=== PATIENT | female | born 1980 | race Caucasian/White ===

== ENCOUNTER 2017-06-21 12:06 | Emergency (ER) | payer OTHER ==
[2017-06-21] MEDS ORDERED: ONDANSETRON 4 MG/2 ML VIAL ONE (12:35)
[2017-06-21] MEDS ORDERED: ONDANSETRON 4 MG/2 ML VIAL IVP ONE (12:36)
[2017-06-21] MEDS ORDERED: NS 1,000 ML IV ONE (12:36)
--- NOTE | 2017-06-21 12:49 | EDPHY ---
H & P Stated Complaint: r sided abd pain/ fever Time Seen by Provider: 06/21/17 12:46 HPI/ROS: CHIEF COMPLAINT: Abdominal pain, vomiting, diarrhea, subjective fever HISTORY OF PRESENT ILLNESS: The patient presents the ED with a 1 day history of severe right-sided abdominal pain. She reports associated vomiting, diarrhea and subjective fever. The patient reports a past medical history significant for fibromyalgia, irritable bowel syndrome, migraine headaches and kidney stones. The patient reports her past surgical history is significant for hysterectomy. The patient denies any antecedent cough, sore throat or additional infectious symptoms. She denies recent antibiotic use or travel outside the [place]. The patient reports her pain is moderate in nature. REVIEW OF SYSTEMS: A comprehensive 10 point review of systems is otherwise negative aside from elements mentioned in the history of present illness. Source: Patient Exam Limitations: No limitations - Personal History LMP (Females 10-55): Hysterectomy Current Tetanus/Diphtheria Vaccine: Yes - Medical/Surgical History Hx Asthma: No Hx Chronic Respiratory Disease: No Hx Diabetes: No Hx Cardiac Disease: No Hx Renal Disease: No Hx Cirrhosis: No Hx Alcoholism: No Hx HIV/AIDS: No Hx Splenectomy or Spleen Trauma: No Other PMH: fibromyalgia/ibsd/migraine/kidney stones/hysterectomy - Social History Smoking Status: Current every day smoker - Physical Exam Exam: General Appearance: Alert, mild discomfort Eyes: Pupils equal and round no pallor or injection ENT, Mouth: Mucous membranes moist Respiratory: There are no retractions, lungs are clear to auscultation Cardiovascular: Regular rate and rhythm Gastrointestinal: Tenderness to palpation in the right lower quadrant, mild rebound, slight guarding Neurological: A&O, normal motor function, normal sensory exam, normal cranial nerves Skin: Warm and dry, no rashes Musculoskeletal: Neck is supple nontender Extremities: symmetrical, full range of motion Constitutional: Initial Vital Signs Temperature (C) 37.6 C 06/21/17 12:11 Heart Rate 109 H 06/21/17 12:11 Respiratory Rate 18 06/21/17 12:11 Blood Pressure 132/88 H 06/21/17 12:11 O2 Sat (%) 94 06/21/17 12:11 O2 Delivery Mode Room Air Allergies/Adverse Reactions: Penicillins Allergy (Verified 06/21/17 12:09) Home Medications: Medication Instructions Recorded IMITREX 06/21/17 Ondansetron Odt [Zofran Odt] 4 mg PO Q4PRN PRN #20 tab 06/21/17 Percocet 10-325 mg Tablet 06/21/17 Provigil 06/21/17 oxyCODONE/APAP 5/325 [Percocet 1 - 2 tab PO Q6-8PRN PRN #20 tab 06/21/17 5/325 (RX)] Medical Decision Making - Diagnostics Imaging Results: Imaging Impressions Abdomen CT 06/21/17 13:41 Impression: 1. No source for right lower quadrant pain identified. Normal vermiform appendix. 2. Nonobstructive (at this time) bilateral nephrolithiasis. Results discussed with Dr. Homar Celestin and Dr. Jesus Ruiz. General information for patients regarding this examination can be found at [email or web address]. If you have questions or comments about this report, please contact me at (hospital) or [phone] (cell). ED Course/Re-evaluation: The patient presents the ED with complaints of right lower quadrant pain, vomiting and diarrhea. The patient was noted to be very tender on exam. She had an IV established. She received IV morphine, Toradol and ultimately Dilaudid. Given her severe tenderness she was taken for CT scan of the abdomen pelvis which demonstrates no obvious explanation for her abdominal pain. The patient did undergo serial examinations in the ED. At this point time I feel the most likely explanation or of her symptoms is gastroenteritis. The patient will be discharged home with a prescription for Zofran and and Percocet. The patient will be advised to return to the ED for markedly worsening pain or other concerns. Differential Diagnosis: Differential diagnosis considered includes appendicitis, perforation, obstruction, pyelonephritis, ureterolithiasis - Data Points Laboratory Results: Laboratory Results 06/21/17 12:30 06/21/17 12:30 06/21/17 06/21/17 06/21/17 15:40 12:30 12:30 WBC 16.19 10^3/uL H 10^3/uL (3.80-9.50) RBC 4.81 10^6/uL 10^6/uL (4.18-5.33) Hgb 15.1 g/dL g/dL (12.6-16.3) Hct 45.6 % % (38.0-47.0) MCV 94.8 fL fL (81.5-99.8) MCH 31.4 pg pg (27.9-34.1) MCHC 33.1 g/dL g/dL (32.4-36.7) RDW 12.5 % % (11.5-15.2) Plt Count 339 10^3/uL 10^3/uL (150-400) MPV 8.6 fL L fL (8.7-11.7) Neut % (Auto) 89.0 % H % (39.3-74.2) Lymph % (Auto) 6.5 % L % (15.0-45.0) [place] % (Auto) 3.2 % L % (4.5-13.0) Eos % (Auto) 0.6 % % (0.6-7.6) Baso % (Auto) 0.2 % L % (0.3-1.7) Nucleat RBC Rel Count 0.0 % % (0.0-0.2) Absolute Neuts (auto) 14.41 10^3/uL H 10^3/uL (1.70-6.50) Absolute Lymphs (auto) 1.06 10^3/uL 10^3/uL (1.00-3.00) Absolute Monos (auto) 0.51 10^3/uL 10^3/uL (0.30-0.80) Absolute Eos (auto) 0.09 10^3/uL 10^3/uL (0.03-0.40) Absolute Basos (auto) 0.04 10^3/uL 10^3/uL (0.02-0.10) Absolute Nucleated RBC 0.00 10^3/uL 10^3/uL (0-0.01) Immature Gran % 0.5 % % (0.0-1.1) Immature Gran # 0.08 10^3/uL 10^3/uL (0.00-0.10) Sodium 140 mEq/L mEq/L (135-145) Potassium 4.2 mEq/L mEq/L (3.5-5.2) Chloride 106 mEq/L mEq/L (97-110) Carbon Dioxide 19 mEq/l L mEq/l (22-31) Anion Gap 15 mEq/L mEq/L (8-16) BUN 15 mg/dL mg/dL (7-23) Creatinine 0.7 mg/dL mg/dL (0.6-1.0) Estimated GFR > 60 Glucose 99 mg/dL mg/dL (70-100) Calcium 8.9 mg/dL mg/dL (8.5-10.4) Total Bilirubin 0.9 mg/dL mg/dL (0.1-1.4) Conjugated Bilirubin 0.3 mg/dL mg/dL (0.0-0.5) Unconjugated Bilirubin 0.6 mg/dL mg/dL (0.0-1.1) AST 19 IU/L IU/L (14-46) ALT 27 IU/L IU/L (9-52) Alkaline Phosphatase 84 IU/L IU/L (38-126) Total Protein 7.3 g/dL g/dL (6.3-8.2) Albumin 4.1 g/dL g/dL (3.5-5.0) Lipase 55 IU/L IU/L (23-300) Urine Color YELLOW Urine Appearance HAZY Urine pH 5.0 (5.0-7.5) Ur Specific [place] > 1.035 H (1.002-1.030) Urine Protein NEGATIVE (NEGATIVE) Urine Ketones NEGATIVE (NEGATIVE) Urine Blood NEGATIVE (NEGATIVE) Urine Nitrate NEGATIVE (NEGATIVE) Urine Bilirubin NEGATIVE (NEGATIVE) Urine Urobilinogen NEGATIVE EU EU (0.2-1.0) Ur Leukocyte Esterase NEGATIVE (NEGATIVE) Urine Glucose NEGATIVE (NEGATIVE) Medications Given: Discontinued Medications Hydromorphone HCl (Dilaudid) 1 mg IVP EDNOW ONE Stop: 06/21/17 15:20 Last Admin: 06/21/17 15:24 Dose: 1 mg Sodium Chloride (Ns) 1,000 mls @ 0 mls/hr IV ONCE ONE PRN Reason: Wide Open Stop: 06/21/17 12:37 Last Admin: 06/21/17 12:38 Dose: 1,000 mls Ketorolac Tromethamine (Toradol) 15 mg IVP EDNOW ONE Stop: 06/21/17 13:43 Last Admin: 06/21/17 13:44 Dose: 15 mg Morphine Sulfate (Morphine) 2 mg IVP EDNOW ONE Stop: 06/21/17 12:42 Last Admin: 06/21/17 12:43 Dose: 2 mg Ondansetron HCl (Zofran) 4 mg IVP EDNOW ONE Stop: 06/21/17 12:37 Last Admin: 06/21/17 12:39 Dose: 4 mg Promethazine HCl (Phenergan) 6.25 mg IVP ONCE ONE Stop: 06/21/17 14:51 Last Admin: 06/21/17 14:53 Dose: 6.25 mg Departure - Departure Disposition: Home, Routine, Self-Care Clinical Impression: Gastroenteritis Abdominal pain Qualifiers: Abdominal location: right lower quadrant Qualified Code(s): R10.31 - Right lower quadrant pain Condition: Good Instructions: Acute Abdominal Pain (ED) Additional Instructions: 1. Take Ibuprofen or Motrin 600 mg by mouth three times a day. 2. Percocet as needed for severe pain 3. Sometimes we are unable to diagnose an obvious cause of abdominal pain in the Emergency Department. Based upon our evaluation today, I believe you likely are experiencing a viral intestinal infection. Because more serious conditions can be difficult to diagnose early in the course of their presentation, we ask that you return to the Emergency Department in 8-12 hours for a recheck if you are still having pain. This is necessary to exclude the development of a more serious condition such as appendicitis or other intra- abdominal emergency. In the event your pain markedly increases before that time or you develop intractable vomiting or fever return to the Emergency Department immediately. Referrals: [facility] [Primary Care Provider] - As per Instructions Prescriptions: Ondansetron Odt [Zofran Odt] 4 mg PO Q4PRN PRN #20 tab PRN Reason: For Nausea oxyCODONE/APAP 5/325 [Percocet 5/325 (RX)] 1 - 2 tab PO Q6-8PRN PRN #20 tab PRN Reason: for pain
[2017-06-21 13:06] LABS: PLATELET COUNT 339 10^3/uL (150-400)
[2017-06-21] MEDS ORDERED: KETOROLAC 15 MG/1 ML SDV IVP ONE (13:42)
[2017-06-21] MEDS ORDERED: IOPAMIDOL (ISOVUE-300) 100 ML BTL ONE (14:13)
[2017-06-21] MEDS ORDERED: PROMETHAZINE HCL 25 MG/ML INJ IVP ONE (14:50)
[2017-06-21] MEDS ORDERED: HYDROmorphONE/DILAUDID 1 MG/ML INJ IVP ONE (15:19)
[2017-06-21 16:15] VITALS: BP 123/89; PULSE 91; RESP 18; TEMP 98.6; O2SAT 95
== END 2017-06-21 16:28 | disposition home or self-care (01) ==
DX: K52.9 Noninfective gastroenteritis and colitis, unspecified (principal); F17.200 Nicotine dependence, unspecified, uncomplicated; Z90.710 Acquired absence of both cervix and uterus
CPT/HCPCS: 96374; J1170; J1885; J2270; J2405; J2550; Q9967

== ENCOUNTER 2018-05-04 10:24 | Observation (INO) | payer OTHER, MEDICAID ==
[2018-05-04] MEDS ORDERED: ONDANSETRON 4 MG/2 ML VIAL ONE (10:49)
[2018-05-04] MEDS ORDERED: fentaNYL 100 MCG/2 ML INJ ONE (10:49)
[2018-05-04] MEDS ORDERED: ONDANSETRON 4 MG/2 ML VIAL IVP ONE (10:53)
[2018-05-04] MEDS ORDERED: fentaNYL 100 MCG/2 ML INJ IVP ONE (10:53)
[2018-05-04] MEDS ORDERED: NS 1,000 ML IV ONE (10:56)
[2018-05-04 11:02] LABS: PLATELET COUNT 377 10^3/uL (150-400)
--- NOTE | 2018-05-04 11:52 | EDPHY ---
HPI/HX/ROS/PE/MDM Narrative: CLINICAL IMPRESSION: Renal stone, intractable pain ASSESSMENT/PLAN: Patient is a 37-year-old female with a significant medical history of kidney stones requiring lithotripsy, fibromyalgia and irritable bowel syndrome who presents with right upper quadrant and right flank pain. Patient is afebrile, she is uncomfortable appearing however not toxic-appearing. Her abdomen was soft with mild tenderness to palpation in the right upper quadrant, no peritoneal signs and no evidence of a surgical abdomen; right CVA tenderness. CBC revealed no evidence of leukocytosis, vital signs were reviewed and there was no evidence of sepsis or serious bacterial illness. BMP revealed no significant metabolic abnormality or CHRISTOPHER. UA with trace leukocytes and 25-35 WBCs, urine sent for culture. CT abdomen and pelvis w/out revealed large 15 x 10 mm stone in the right renal pelvis with associated mild hydronephrosis. History and physical examination is consistent with right renal pelvis stone with associated hydronephrosis and intractable pain. Dr. Butler with Urology was consulted, no indication for urgent surgical intervention and he did not recommend antibiotic therapy based upon above results. The patient was given IV fluids, morphine, fentanyl, Dilaudid, Toradol and lidocaine infusion with mild to moderate relief of her discomfort. The patient remained hemodynamically stable however in light of no adequate pain control the patient will be admitted to the hospitalist service for further evaluation and management. I spoke directly with Tiffanie Jacome nurse practitioner who will be the admitting provider. Dr. Butler will also formally consult this patient. On reexamination prior to transfer to the floor the patient reported that she was feeling mildly better, her abdomen remained soft without evidence of a surgical abdomen. Case, results and plan of care discussed with Dr. Groves. DIFFERENTIAL DX: Back pain including but not limited to muscular pain, herniated disc, spine fracture, intra-abdominal causes and urinary tract infection. Abdominal pain including but not limited to appendicitis, cholecystitis and gastritis CHIEF COMPLAINT: Right-sided abdominal and flank pain HPI: Patient is a 37-year-old female with a significant history of fibromyalgia, kidney stones and irritable bowel syndrome who presents to the emergency department complaining of right sided abdominal and right flank pain. Patient reports mid February she had a fall injuring her right ribs, was admitted for pain control for presumed contusion. She has been having ongoing and intermittent right-sided abdominal and flank pain since that time. Patient reports that she did improve however had a sudden onset of worsening pain today after she ate. Patient describes it as stabbing in nature and unrelenting. She has not tried anything for pain. Patient does have a history of kidney stones requiring lithotripsy, states that this does not feel similar to when she has had stones in the past. She denies any fevers, chills however has had periods of feeling nauseous. She denies any chest pain, shortness of breath or vomiting. She denies any pelvic pain, vaginal pain, vaginal bleeding or vaginal discharge. She does endorse hematuria noted yesterday, denies any dysuria or increased frequency. Also denies any midline back pain. Patient denies saddle paresthesias, lower extremity numbness, tingling, major motor weakness, urinary retention or bowel/bladder incontinence. PMH: Fibromyalgia, irritable bowel syndrome, renal colic Pertinent Past Surgical History: Hysterectomy Family History: Not contributory Social History: Denies REVIEW OF SYSTEMS: All other systems negative Constitutional: No fever, no chills, appetite change. Eyes: No discharge, vision change ENT: No sore throat, congestion, ear pain. Cardiovascular: No chest pain, no palpitations. Respiratory: No cough, no shortness of breath. Gastrointestinal: Abdominal pain. No vomiting, diarrhea. Genitourinary: Hematuria. No dysuria or pelvic pain Musculoskeletal: Right flank pain. No midline back pain, joint swelling, joint pain, myalgias. Skin: No rashes, color change. Neurological: No headache, dizziness, weakness. PHYSICAL EXAM: General Appearance: Patient is well-developed, obese, uncomfortable appearing however not toxic-appearing. HENT: Normocephalic, atraumatic. Bilateral external ears are normal. Bilateral tympanic membranes are normal with pearly albright reflex. Nares are clear, mucosa is pink. Oropharynx is clear, uvula is midline. There is no tonsillar enlargement or exudate. The dentition is normal. Eyes: PERRLA, no acute vision change, nystagmus, swelling, discharge, pain or photosensitivity. Conjunctiva pink, no pallor or injection Neck: Supple, nontender, no lymphadenopathy, no midline pain, FROM, no meningismus. Respiratory: There are no retractions, lungs are clear to auscultation. Cardiac: Regular rate and rhythm, no murmurs or gallops. Gastrointestinal: Patient has mild tenderness to palpation in the right upper quadrant, positive right CVA tenderness. She has negative McBurney's point tenderness, negative rebound tenderness and negative Rovsing's. No peritoneal signs. Bowel sounds are present. There are no appreciable masses. Neurological: Alert and oriented x 3, CN 2-12 grossly intact, normal gait no ataxia, DTR's intact, normal sensation and strength Skin: Warm, dry, no rashes, no nodules on palpation. Musculoskeletal: Extremities are symmetrical, full range of motion, no tenderness, deformity, swelling, or erythema. Psychiatric: Patient is oriented X 3, there is no agitation. MEDICAL DECISION MAKING: Patient was seen independently. Secondary supervising physician at time of evaluation was Dr. Groves. Diagnosis: Renal stone, intractable pain. New, requires workup Summary: See Assessment and Plan for summary of ED visit Clinical lab tests: ordered / reviewed. Independent visualization of images, tracing, or specimens: Yes. Decision to obtain medical records or history from someone other than the patient: Yes Review / Summarize previous medical records: Yes Discussed patient with another provider: Yes, Dr. Groves and Dr. Butler Patient Progress: Stable, admit. (Desirae Conley) ED Course: The patient was evaluated and managed by the physician assistant banquet manager. I have reviewed this chart and I agree with the findings and plan of care as documented , as indicated by my signature. I am the secondary supervising physician. ( Diana Groves) - Data Points Laboratory Results: Laboratory Results 05/04/18 10:50 05/04/18 10:50 Medications Given: Citalopram Hydrobromide (Celexa) 40 mg PO HS [facility] Stop: 10/31/18 20:59 Last Admin: 05/04/18 20:56 Dose: 40 mg Ketorolac Tromethamine (Toradol) 15 mg IVP Q6 [facility] Stop: 05/09/18 17:59 Last Admin: 05/05/18 05:26 Dose: 15 mg Morphine Sulfate (Morphine) 1 - 2 mg IVP Q1HR PRN PRN Reason: Pain, Severe Unable to Take PO Stop: 05/15/18 09:20 Last Admin: 05/05/18 09:28 Dose: 2 mg Nortriptyline HCl (Pamelor) 10 mg PO HS [facility] Stop: 10/31/18 20:59 Last Admin: 05/04/18 21:01 Dose: 10 mg Ondansetron HCl (Zofran Odt) 4 mg PO Q4HRS PRN PRN Reason: Nausea/Vomiting, Use 1st Stop: 10/31/18 15:34 Last Admin: 05/04/18 18:34 Dose: 4 mg Promethazine HCl (Phenergan) 12.5 mg IVP Q6HRS PRN PRN Reason: Nausea/Vomiting, Can't Take PO Stop: 10/31/18 22:05 Last Admin: 05/04/18 22:23 Dose: 12.5 mg Sumatriptan Succinate (Imitrex) 25 mg PO ONCE PRN PRN Reason: MIGRAINE Stop: 10/31/18 19:19 Last Admin: 05/05/18 09:01 Dose: 25 mg Varenicline (Chantix) 1 mg PO [facility] Stop: 10/31/18 20:59 Last Admin: 05/04/18 21:01 Dose: 1 mg Discontinued Medications Fentanyl (Sublimaze) 75 mcg IVP EDNOW ONE Stop: 05/04/18 10:54 Last Admin: 05/04/18 10:55 Dose: 75 mcg Hydromorphone HCl (Dilaudid) 0.5 mg IVP EDNOW ONE Stop: 05/04/18 14:45 Last Admin: 05/04/18 14:45 Dose: 0.5 mg Sodium Chloride (Ns) 1,000 mls @ 0 mls/hr IV ONCE ONE; Wide Open PRN Reason: Protocol Stop: 05/04/18 10:57 Last Admin: 05/04/18 11:00 Dose: 1,000 mls Lidocaine HCl 100 mg/ Sodium (Chloride) 110 mls @ 600 mls/hr IV EDNOW ONE Stop: 05/04/18 13:13 Last Admin: 05/04/18 13:30 Dose: 110 mls Sodium Chloride (Ns) 1,000 mls @ 100 mls/hr IV CONT [facility] Stop: 05/05/18 01:44 Last Admin: 05/04/18 16:58 Dose: 1,000 mls Levofloxacin/Dextrose (Levaquin 500 Mg (Premix)) 100 mls @ 100 mls/hr IV ONCALL ONE PRN Reason: Protocol Stop: 05/05/18 11:29 Last Admin: 05/05/18 11:31 Dose: 100 mls Lactated Ringer's (Lr) 1,000 mls @ 0 mls/hr IV ONCE ONE PRN Reason: KVO Stop: 05/05/18 10:24 Last Admin: 05/05/18 10:28 Dose: 1,000 mls Ketorolac Tromethamine (Toradol) 30 mg IVP EDNOW ONE Stop: 05/04/18 12:14 Last Admin: 05/04/18 12:27 Dose: 30 mg Morphine Sulfate (Morphine) 4 mg IVP EDNOW ONE Stop: 05/04/18 11:23 Last Admin: 05/04/18 11:24 Dose: 4 mg Morphine Sulfate (Morphine) 1 - 2 mg IVP Q1HR PRN PRN Reason: Pain, Severe Unable to Take PO Stop: 05/14/18 15:34 Last Admin: 05/05/18 05:24 Dose: 2 mg Ondansetron HCl (Zofran) 4 mg IVP EDNOW ONE Stop: 05/04/18 10:54 Last Admin: 05/04/18 10:56 Dose: 4 mg General Initial Vital Signs: Initial Vital Signs Temperature (C) 37.2 C 05/04/18 10:30 Heart Rate 90 05/04/18 10:30 Respiratory Rate 16 05/04/18 10:30 Blood Pressure 126/84 H 05/04/18 10:30 O2 Sat (%) 95 05/04/18 10:30 O2 Delivery Mode Room Air O2 (L/minute) 2 Allergies/Adverse Reactions: Penicillins Allergy (Verified 05/04/18 10:29) Home Medications: Medication Instructions Recorded Beclomethasone Dipropionate [Qvar 1 puffs PO BID PRN 05/04/18 Redihaler] Citalopram Hydrobromide 40 mg PO HS 05/04/18 [Citalopram HBr] Nortriptyline HCl [Nortriptyline 10 mg PO HS 05/04/18 HCl] SUMAtriptan [Imitrex 25 MG (*)] 25 mg PO Q2H PRN 05/04/18 Varenicline Tartrate [Chantix 1MG 1 mg PO HS 05/04/18 (*)] Departure - Departure Disposition: [facility] In[facility] Acute Clinical Impression: Renal calculus, right, Intractable pain Condition: Good
[2018-05-04] MEDS ORDERED: KETOROLAC 30 MG/1 ML SDV ONE (12:13)
[2018-05-04] MEDS ORDERED: KETOROLAC 30 MG/1 ML SDV IVP ONE (12:13)
[2018-05-04] MEDS ORDERED: LIDOCAINE 1% 100 MG in NS 100 ML IV ONE (13:03)
[2018-05-04] MEDS ORDERED: HYDROmorphONE/DILAUDID 1 MG/ML INJ ONE (14:40)
[2018-05-04] MEDS ORDERED: HYDROmorphONE/DILAUDID 2 MG/ML INJ IVP ONE (14:44)
[2018-05-04] MEDS ORDERED: ONDANSETRON DISINTEGRATING 4 MG TAB PO PRN (15:35)
[2018-05-04] MEDS ORDERED: ACETAMINOPHEN 325 MG TAB PO PRN (15:35)
[2018-05-04] MEDS ORDERED: ONDANSETRON 4 MG/2 ML VIAL IVP PRN (15:35)
[2018-05-04] MEDS ORDERED: NS 1,000 ML IV SCH (15:45)
--- NOTE | 2018-05-04 16:24 | GHP ---
DATE OF ADMISSION: 05/04/2018 CHIEF COMPLAINT: Right-sided flank pain. HISTORY OF PRESENT ILLNESS: The patient is a 37-year-old woman who has a history of kidney stones, fibromyalgia, irritable bowel syndrome, who presented to the emergency room with flank pain. Her initial symptoms originally occurred on March 03. She fell in her driveway area due to slipping on ice. She hit her gluteus area and then her back. At that time, came in the ER and was monitored overnight for pain management. During that evaluation, the x- ray showed that she had a kidney stone. She was discharged home and needed approximately a month to recover after the fall. Today at work, she was having flank pain that came on suddenly. She currently works at [email or web address]. Her coworkers encouraged her to go to the emergency room and ultimately drove her to be further evaluated. She also noticed that she had blood in her urine. She does not have a menstrual cycle because she has a history of a partial hysterectomy. She did not have any nausea or vomiting or fever or chills. She described having severe flank pain. An abdominal ultrasound was performed that showed moderate right hydronephrosis with a 7 mm calculus in the right renal pelvis. She has no cholelithiasis or biliary ductal dilatation. Subsequently, a CT of the abdomen and pelvis was performed that showed moderate right hydronephrosis secondary to an 18 x 10 mm calculus in the right renal pelvis. She has a nonobstructing left nephrolithiasis. During my interview, her pain is overall well managed. She denies any chest pain, any shortness of breath, any changes in her weight. PAST SURGICAL HISTORY: 1. Partial hysterectomy. 2. Ankle surgery. 3. Two endometrial surgeries for endometriosis. PAST MEDICAL HISTORY: 1. History of kidney stones on 6 different occasions. 2. Fibromyalgia. 3. Irritable bowel syndrome. 4. Migraines. FAMILY HISTORY: Her mother from complications of a stroke at age 52. Her mom was also an alcoholic. Her father is alive and is healthy. SOCIAL HISTORY: She has been for 11 years. Her has MS. She has 1 son. She does not smoke. She rarely drinks alcohol. She currently works at [email or web address]. ALLERGIES: She has seasonal allergies. She has a penicillin allergy. She is not clear of her reaction. This occurred when she was little. She also is allergic to some medication that treats irritable bowel syndrome, but she could not remember this medication. HOME MEDICATIONS: Chantix 1 mg p.o. at bedtime, nortriptyline 10 mg p.o. at bedtime, citalopram 40 mg p.o. at bedtime, Imitrex 25 mg p.o. q.2 hours p.r.n., and Qvar inhaler twice daily p.r.n. REVIEW OF SYSTEMS: A 10-point review of system was performed and was negative other than the pertinent positive in HPI and past medical history. PHYSICAL EXAM: GENERAL: The patient is a 37-year-old woman who appears to be overall in good health. VITAL SIGNS: Blood pressure is 111/70, heart rate is 65, respiratory rate is 16, O2 saturation on room air 94%, temperature is 36.8 Celsius. EYES: Pupils are equal and reactive. EOMs are intact. No conjunctival injection noted. ENT: Normal ears hearing intact. Oral airways moist. NECK: Trachea is midline. CARDIOVASCULAR: She is in a regular rate and rhythm. No murmurs, rubs, or gallops noted. 2+ pedal pulses. LUNGS: Normal respiratory effort. Clear without wheezing, rales, rhonchi. ABDOMEN: Soft, nontender. She has positive flank pain on the right side. SKIN: No rashes, ulcers. MUSCULOSKELETAL: Equal upper and lower extremity strength. PSYCHIATRIC: She is alert and oriented. Normal mood, affect. Normal judgment , insight, and normal memory. DATA REVIEWED: A CBC shows a white blood cell count of 9.33, hemoglobin 13.4, hematocrit of 40.5, platelet count of 377. Chemistry shows a sodium 139, potassium 4.2, chloride of 108, anion gap of 7, BUN 20, creatinine 0.8, glucose of 115, AST is 13, ALT is 20, alk phos is 83, albumin is 4, lipase is 89. screen is negative. Urinalysis shows 2+ protein, 2+ blood, trace leukocyte esterase, 25 to 50 RBCs and 15 to 25 white blood cells. IMAGING: Described in the HPI. I reviewed the patient's care with Desirae Conley , physician nursing home assistant administrator, in the emergency room. ASSESSMENT/PLAN: 1. Right-sided nephrolithiasis measuring 18 x 10 mm. This is noted to be in the right renal pelvis. She will get further evaluation by Dr. Butler. For now , will give her supportive care with Toradol and p.r.n. morphine. This has worked well for her in the emergency room. 2. Right-sided hydronephrosis. This should resolve with passing of the stone. 3. Flank pain. Will order p.r.n. medications. 4. Length of stay. She will likely require less than a 2 midnight stay which will make her observation status. 5. Code status. Full. 6. Deep venous thrombosis prophylaxis. Low risk. This can be further evaluated if she stays. /[id number]/MODL MTDD
--- NOTE | 2018-05-04 16:43 | ASMTCMCOM ---
CM Note CM Note Notes: Reviewed chart, pt admitted to hospital for kidney stone. Pt is independent, she lives with her and works. Anticipate she will dc home w/support of family when medically stable. CM available for any changes. DC Plan: Independent Date Signed: 05/04/2018 04:42 PM Electronically Signed By:Rachel Vang RN
[2018-05-04] MEDS ORDERED: BECLOMETHASONE QVAR 40 REDIHALER 120 INH/10.6 GM MDI IH PRN (19:20)
[2018-05-04] MEDS ORDERED: SUMAtriptan 25 MG TAB PO PRN (19:20)
[2018-05-04] MEDS: KETOROLAC 15 MG/1 ML SDV IVP SCH (19:37)
[2018-05-04] MEDS: CITALOPRAM 20 MG TAB PO SCH (20:56)
[2018-05-04] MEDS: VARENICLINE TARTRATE 1 MG TAB PO SCH (21:01)
[2018-05-04] MEDS: NORTRIPTYLINE HCL 10 MG CAP PO SCH (21:01)
[2018-05-04] MEDS: PROMETHAZINE HCL 25 MG/ML INJ IVP PRN (22:23)
[2018-05-05] MEDS: KETOROLAC 15 MG/1 ML SDV IVP SCH ×5 (00:14→23:32)
--- NOTE | 2018-05-05 06:02 | GCON ---
UROLOGY CONSULTATION DATE OF CONSULTATION: 05/04/2018 PHYSICIAN REQUESTING CONSULTATION: Hospitalist service. REASON FOR CONSULTATION: Symptomatic right kidney stone. HISTORY: This is a 37-year-old woman with prior history of nephrolithiasis, who started experiencing right-sided flank pain approximately 2 months ago that she initially thought was due to a fall. She then experienced an acute onset of right-sided flank pain at work earlier today for which she presented to the emergency room for further evaluation. A CT scan was performed, which revealed a large right kidney stone. The patient was subsequently admitted for pain control and further management. She did have some gross hematuria earlier today , but otherwise she denies dysuria, fevers, nor flu-like symptoms. As mentioned above, she has at least 3 kidney stones previously with the first episode being in 2007, and requiring lithotripsy at that time. She has had 2 subsequent episodes of spontaneous stone passage since then, up until the present history. PAST MEDICAL HISTORY: Notable for fibromyalgia, irritable bowel syndrome, migraine headaches, recurrent nephrolithiasis, and endometriosis. PAST SURGICAL HISTORY: Includes partial hysterectomy in approximately 2013, extracorporeal shock wave lithotripsy in 2007. ADMISSION MEDICATIONS: Includes Chantix 1 mg at bedtime, nortriptyline 10 mg at bedtime, citalopram 40 mg at bedtime, Imitrex 25 mg q.2 hours p.r.n., QVAR inhaler twice daily p.r.n. ALLERGIES: Penicillin, unclear reaction. FAMILY HISTORY: Noncontributory. SOCIAL HISTORY: The patient lives with her and 1 [facility]. She denies use of tobacco products and consumes alcohol rarely. She works at [employer]. REVIEW OF SYSTEMS: Unremarkable, other than mentioned above in the HPI and Past Medical History. PHYSICAL EXAM: GENERAL: Obese white female lying upright in bed in no acute distress presently. VITAL SIGNS: Blood pressure 143/80, pulse 72, respirations 16, oxygen saturation 94% on room air, temperature 36.8 Celsius. Height 155 cm, weight 96 kg, BMI 40. HEENT: Normocephalic, atraumatic. NECK: No visible deformities. CHEST: Unlabored respiratory pattern. HEART: Regular rate. ABDOMEN: Obese. Mild tenderness in the right upper quadrant with palpation but without peritoneal signs nor involuntary guarding. BACK: Moderate right CVA tenderness with gentle percussion. VASCULAR: Normal femoral pulses bilaterally. NEUROLOGIC: She is alert and oriented. She answers all questions appropriately with normal mood and affect. LAB STUDIES: Noncontrast abdominopelvic CT scan today: Upon my review, notable for an approximately 18 x 10 x 16 mm long right ureteropelvic junction calculus. No other significant nephroureterolithiasis is appreciated. Chemistry panel today is normal, creatinine 0.8, calcium 9.1. Uric acid level not checked. Qualitative beta HCG was negative. CBC is normal. Urinalysis notable for trace leukocyte, 25-50 red blood cells, 15-25 white blood cells. Urine culture is pending. IMPRESSION: Large symptomatic right renal calculus. This calculus is too large to be treated with retrograde ureteroscopy nor extracorporeal shockwave lithotripsy. She will eventually require percutaneous nephrostolithotomy. However, in the interim, she needs drainage of her right kidney to alleviate her current symptoms. Drainage would consist of either intraoperative ureteral stenting or nephrostomy tube placement through Interventional Radiology. Each of these options was compared and contrasted, and all her questions were answered today. PLAN: 1. Continue medical management today. 2. We will proceed with intraoperative attempted right-sided ureteral stent placement tomorrow morning. If this is successful, the patient can be discharged any time thereafter and follow up in my office late next week for further discussion regarding definitive management of her large renal calculus. Thank you for this consultation. Copy requested to: Rc Bello MD /[id number]/MODL MTDD
[2018-05-05] MEDS ORDERED: LR 1,000 ML IV ONE (10:23)
[2018-05-05] MEDS ORDERED: levOFLOXACIN 500 MG/DEXTROSE 100 ML IV ONE (10:30)
[2018-05-05] MEDS ORDERED: MIDAZOLAM 2 MG/2 ML VIAL IVP ONE (11:24)
--- NOTE | 2018-05-05 11:25 | PDANEPAE ---
ANE Past Medical History - Pulmonary History Hx Oxygen in Use at Home: No Hx Sleep Apnea: Yes Sleep Apnea Screening Result - Last Documented: Positive - Endocrine History Hx Diabetes: No - Chronic Pain History Chronic Pain: Yes ANE Review of Systems Review of Systems: ANE Patient History - Allergies Allergies/Adverse Reactions: Penicillins Allergy (Verified 05/04/18 10:29) - Home Medications Home Medications: Beclomethasone Dipropionate [Qvar Redihaler] 1 puffs PO BID PRN 05/04/18 [Last Taken Unknown] Citalopram Hydrobromide [Citalopram HBr] 40 mg PO HS 05/04/18 [Last Taken ] Nortriptyline HCl [Nortriptyline HCl] 10 mg PO HS 05/04/18 [Last Taken 05/03/18] SUMAtriptan [Imitrex 25 MG (*)] 25 mg PO Q2H PRN 05/04/18 [Last Taken Unknown] Varenicline Tartrate [Chantix 1MG (*)] 1 mg PO HS 05/04/18 [Last Taken 05/03/18] - NPO status NPO Since - Liquids (Date): 05/05/18 NPO Since - Liquids (Time): 00:01 NPO Since - Solids (Date): 05/05/18 NPO Since - Solids (Time): 00:01 - Smoking Hx Smoking Status: Former smoker ANE Labs/Vital Signs - Labs Result Diagrams: 05/04/18 10:50 05/04/18 10:50 - Vital Signs Blood Pressure: 126/67 Heart Rate: 66 Respiratory Rate: 16 O2 Sat (%): 95 Height: 154.94 cm Weight: 95.708 kg ANE Physical Exam - Airway Neck exam: FROM Mallampati Score: Class 2 - Pulmonary Pulmonary: no respiratory distress - Cardiovascular Cardiovascular: regular rate and rhythym - ASA Status ASA Status: II ANE Anesthesia Plan Anesthesia Plan: general endotracheal anesthesia
[2018-05-05] MEDS ORDERED: MIDAZOLAM 2 MG/2 ML VIAL ONE (11:29)
[2018-05-05] MEDS ORDERED: LIDOCAINE 2% JELLY 20 ML (UROJECT) ONE (11:33)
[2018-05-05] MEDS ORDERED: IOPAMIDOL (ISOVUE-M 300) 15 ML VIAL ONE (11:33)
[2018-05-05] MEDS ORDERED: fentaNYL 100 MCG/2 ML INJ ONE ×2 (11:43→12:49)
[2018-05-05] MEDS ORDERED: LIDOCAINE 2% 100 MG/5 ML SYR ONE (11:43)
[2018-05-05] MEDS ORDERED: ROCURONIUM 50 MG/5 ML VIAL ONE (11:43)
[2018-05-05] MEDS ORDERED: PROPOFOL 200 MG/20 ML VIAL ONE (11:43)
[2018-05-05] MEDS ORDERED: SUGAMMADEX SODIUM 200 MG/2 ML VIAL IVP ONE (12:02)
[2018-05-05] MEDS ORDERED: ONDANSETRON 4 MG/2 ML VIAL IVP PRN (12:24)
[2018-05-05] MEDS ORDERED: MEPERIDINE 25 MG/0.5 ML AMP IVP PRN (12:24)
[2018-05-05] MEDS ORDERED: NALOXONE HCL 0.4 MG/ML INJ IVP PRN (12:24)
[2018-05-05] MEDS ORDERED: ALBUTEROL 3 ML DEYVIAL IH PRN (12:24)
--- NOTE | 2018-05-05 12:26 | POSTANESTH ---
Post Anesthetic Evaluation Cardiovascular Status: Similar to Pre-Op Cond Respiratory Status: Similar to Pre-op Cond. Level of Consciousness/Mental Status: Mildly Sleepy, Arousable Pain Control: Adequate, Prn Tx Ordered Nausea/Vomiting Control: Adequate, Prn Tx Ordered Complications Possibly Related to Anesthesia: None Noted
--- NOTE | 2018-05-05 12:34 | POSTOPPROG ---
Post Op Note Date of Operation: 05/05/18 Surgeon: Rory Butler (# [id number]) Anesthesia: GET(General Endotracheal) Pre-op Diagnosis: Large symptomatic right renal calculus Post-op Diagnosis: Large symptomatic right renal calculus Procedure: Cysto, Right RGP, ureteral stent placement (6x24) Findings: See op note Inf/Abcess present in the surg proc area at time of surgery?: No EBL: Minimal (0) Complications: None Drains: Other (Right ureteral stent (6 Fr. x 24 cm)) Specimen(s): None Text Box - Additional Text Additional Text: She may be discharged whenever deemed appropriate by the hospitalist service & will need to FU in my office w/in the next week to discuss definitive kidney stone treatment.
[2018-05-05] MEDS: fentaNYL 100 MCG/2 ML INJ IVP PRN ×2 (12:48→12:58)
[2018-05-05] MEDS ORDERED: KETOROLAC 15 MG/1 ML SDV ONE (13:53)
[2018-05-05] MEDS ORDERED: diphenhydrAMINE 25 MG CAP PO PRN (14:25)
[2018-05-05] MEDS ORDERED: diphenhydrAMINE 25 MG CAP PO STA (14:25)
[2018-05-05] MEDS: PHENAZOPYRIDINE HCL 200 MG TAB PO SCH ×3 (14:30→21:33)
--- NOTE | 2018-05-05 16:50 | HOSPPROG ---
Hospitalist Progress Note Assessment/Plan: Subjective Follow-up on right-sided abdominal pain. Patient reported a rash which was pruritic in her right wrist area postoperatively. She states that she is experiencing some itching as well which he typically does when she receives narcotic pain medications. Otherwise she had successful ureter stent placement today. Objective Vital signs as detailed below Exam General-awake alert conversant no acute distress Heart-regular rate and rhythm no murmurs Lungs-Clear to auscultation with normal respiratory effort Abdomen-soft nontender nondistended normal bowel sounds -no Diaz catheter in place Extremities-no significant pitting edema or calf pain with palpation Skin-urticarial like rash in the right wrist area extending up to the mid forearm Labs as detailed below Assessment and plan Right renal stone-patient was found to have a large right renal stone at the right ureter at the level of the renal pelvis causing moderate right-sided hydronephrosis. Patient underwent stent placement today and will plan on outpatient follow-up for definitive stone treatment. Rash-patient has a urticarial type rash that developed this afternoon. We discussed that we would treat with Benadryl and monitor this overnight. If stable then probably could be discharged home tomorrow. [id number] diagnosis. DVT prophylaxis compression devices. Disposition-anticipate she will be able to return home independently once medically clear. Objective: Vital Signs Temp Pulse Resp BP Pulse Ox 36.7 C 91 16 122/82 H 95 05/05/18 15:58 05/05/18 15:58 05/05/18 15:58 05/05/18 15:58 05/05/18 15:58 05/04/18 05/05/18 05/06/18 05:59 05:59 05:59 Intake Total 1400 1100 Output Total 700 0 Balance 700 1100 ICD10 Worksheet Patient Problems: Problems Problem Status Onset Intractable pain Acute Renal calculus, right Acute
[2018-05-05] MEDS: CITALOPRAM 20 MG TAB PO SCH (20:02)
[2018-05-05] MEDS: NORTRIPTYLINE HCL 10 MG CAP PO SCH (20:02)
[2018-05-05] MEDS: VARENICLINE TARTRATE 1 MG TAB PO SCH (20:02)
[2018-05-05] MEDS: PROMETHAZINE HCL 25 MG/ML INJ IVP PRN (22:20)
[2018-05-05] MEDS: HYDROmorphONE/DILAUDID 1 MG/ML INJ IVP PRN (22:21)
--- NOTE | 2018-05-06 00:54 | GOP ---
DATE OF OPERATION: 05/05/2018 SURGEON: Rory Butler MD ANESTHESIA: General endotracheal. PREOPERATIVE DIAGNOSIS: Large symptomatic right renal pelvic calculus. POSTOPERATIVE DIAGNOSIS: Large symptomatic right renal pelvic calculus. PROCEDURE PERFORMED: 1. Cystourethroscopy, right retrograde pyelography. 2. Right ureteral stent placement (6-Slovenian by 24 cm). FINDINGS: Large partially obstructing right renal pelvic calculus. ESTIMATED BLOOD LOSS: None. INDICATIONS: This woman was admitted yesterday with symptoms related to a large right renal calculus. She presents for operative stent placement to temporarily alleviate her presenting symptoms until definitive surgical treatment of her calculus can be performed. The indications for the procedures as well as potential risks and complications were discussed with the patient preoperatively. She appeared to understand, her questions were answered, and she wished to proceed. Written informed surgical consent was thereafter obtained. DESCRIPTION OF PROCEDURE: The patient was brought to the operating room and administered general endotracheal anesthesia. She was carefully placed in the dorsal lithotomy position on the cystoscopic table. The genital area was sterilely prepped with Betadine scrub and paint then draped in usual sterile fashion. Cystoscopy was performed with a 30-degree lens through a 22-Slovenian sheath. Urethra and bladder were unremarkable. Ureteral orifices were normal in regards to shape and position along the trigone. A 5-Slovenian open-ended ureteral catheter was used to perform retrograde pyelography on the right side. This revealed no abnormalities of the right ureter. However, there was a large filling defect occupying a majority of the renal pelvis with mild calyceal dilation diffusely. Motor Vehicle Technician radiographic image obtained prior to injection of contrast also revealed a sizable opacification in the region of the right renal pelvis which was confirmed on retrograde pyelography. I then passed a 0.035-inch hydrophilic guidewire through the ureteral catheter and advanced it into the upper pole of the right renal collecting system as noted on fluoroscopic imaging. The ureteral catheter was removed and a 6-Slovenian by 24 cm hydrophilic ureteral stent advanced over the guidewire until it was properly positioned as seen fluoroscopically in the kidney and cystoscopically in the bladder. The bladder was then drained of all return which was clear. The instruments were removed, and 20 cc of 2% lidocaine injected transurethrally for postoperative analgesic purposes. The patient was then awakened, extubated, transferred to her bed, then taken to the recovery room. She tolerated the procedure well overall. COMPLICATIONS: None. DISPOSITION: She was transferred to the recovery room in stable condition. She can be discharged whenever deemed appropriate by the hospitalist service, either later today or Monday. She will need to return to my office sometime within the next week for further discussion regarding definitive management of her large renal calculus. This will likely require percutaneous nephrostolithotomy. /[id number]/MODL MTDD
[2018-05-06] MEDS: HYDROmorphONE/DILAUDID 1 MG/ML INJ IVP PRN ×2 (02:46→08:56)
[2018-05-06] MEDS: KETOROLAC 15 MG/1 ML SDV IVP SCH ×3 (05:18→18:43)
[2018-05-06] MEDS: PHENAZOPYRIDINE HCL 200 MG TAB PO SCH ×3 (08:55→20:11)
[2018-05-06] MEDS: OXYCODONE/APAP 5/325 TAB PO PRN ×3 (11:53→20:12)
--- NOTE | 2018-05-06 14:32 | HOSPPROG ---
Hospitalist Progress Note Assessment/Plan: Subjective Follow-up on right-sided abdominal pain. No acute events overnight. The rash noted after her procedure yesterday did improve. She has noted more did discomfort with urination in the suprapubic region. We discussed pain control and she states that she uses oxycodone/acetaminophen 10/325 mg as needed for headache related pain. We discussed trying this to see if that we give us any better pain control. Objective Vital signs as detailed below Exam General-awake alert no major distress but seems uncomfortable generally Heart-regular rate and rhythm no murmurs Lungs-Clear to auscultation with normal respiratory effort Abdomen-soft nontender nondistended normal bowel sounds -no Diaz catheter in place Extremities-no significant pitting edema or calf pain with palpation Skin-resolved her to Rachael like rash on her right wrist area Labs as detailed below Assessment and plan Right renal stone-patient was found to have a large right renal stone at the right ureter at the level of the renal pelvis causing moderate right-sided hydronephrosis. Patient underwent stent placement today and will plan on outpatient follow-up for definitive stone treatment. Abdominal/pelvic pain-this was reviewed with Urology and felt likely to be related to stent placement. Will try as needed oxycodone acetaminophen today to see if we can obtain better pain control. I recommend we hold using IV Dilaudid. Rash-this appears to have resolved today. Hmtcwavnxlaf-qsz-iduzihyx diagnosis. DVT prophylaxis compression devices. Disposition-anticipate she will be able to return home independently once medically clear. Objective: Vital Signs Temp Pulse Resp BP Pulse Ox 36.7 C 73 17 138/89 H 94 05/06/18 08:00 05/06/18 08:00 05/06/18 08:00 05/06/18 08:00 05/06/18 08:00 05/05/18 05/06/18 05/07/18 05:59 05:59 05:59 Intake Total 1400 2300 300 Output Total 700 1240 400 Balance 700 1060 -100 ICD10 Worksheet Patient Problems: Problems Problem Status Onset Intractable pain Acute Renal calculus, right Acute
[2018-05-06] MEDS: CITALOPRAM 20 MG TAB PO SCH (20:10)
[2018-05-06] MEDS: NORTRIPTYLINE HCL 10 MG CAP PO SCH (20:12)
[2018-05-06] MEDS: VARENICLINE TARTRATE 1 MG TAB PO SCH (20:12)
[2018-05-07] MEDS: KETOROLAC 15 MG/1 ML SDV IVP SCH ×2 (00:14→06:25)
[2018-05-07] MEDS: OXYCODONE/APAP 5/325 TAB PO PRN (00:15)
[2018-05-07] MEDS: ACETAMINOPHEN 325 MG TAB PO PRN ×2 (07:47→11:45)
[2018-05-07] MEDS: PHENAZOPYRIDINE HCL 200 MG TAB PO SCH (07:47)
[2018-05-07] MEDS: oxyCODONE IR 5 MG TAB PO PRN ×2 (07:47→11:45)
[2018-05-07 08:30] VITALS: BP 118/82
--- NOTE | 2018-05-07 10:42 | ASMTLACE ---
LACE Length of stay for Answers: 2 days current admission Acuity / Level of Answers: No Care: Did the patient have an inpatient admission? Comorbidities - select Answers: Other Notes: fibromyalgia all that apply # of Emergency department Answers: 1-2 visits in the last 6 months Score: 4 Date Signed: 05/07/2018 10:41 AM Electronically Signed By:RYAN Rodas
--- NOTE | 2018-05-07 11:45 | ASDISCHSUM ---
Discharge Information Plan Status:Home with No Needs Medically Cleared to Leave:05/06/2018 Discharge Date:05/06/2018 CM D/C Disposition:Home, Routine, Self-Care ADT D/C Disposition:Home, Routine, Self-Care Projected Discharge Date:05/07/2018 12:00 AM Transportation at D/C:Family Discharge Delay Reason: Follow-Up Date:05/07/2018 12:00 AM Discharge Slot: Final Diagnosis: Placement Information Patient Contact Information Contact Name:YNES Relationship:Other Address:[address] City:[place] Alternate Phone: State/Zip Code:[place] [address] Email: Financial Information Financial Class:[employer] Primary Plan Desc:[facility] Primary Plan Number:[id number] Secondary Plan Desc:[employer]ICA[employer] [facility] Secondary Plan Number:[id number] Assessment Information LACE LACE Length of stay for Answers: 2 days current admission Acuity / Level of Answers: No Care: Did the patient have an inpatient admission? Comorbidities - select Answers: Other Notes: fibromyalgia all that apply # of Emergency department Answers: 1-2 visits in the last 6 months Score: 4 Date Signed: 05/07/2018 10:41 AM Electronically Signed By:RYAN Rodas [facility] CM Progress Note CM Note CM Note Notes: Reviewed chart, pt admitted to hospital for kidney stone. Pt is independent, she lives with her and works. Anticipate she will dc home w/support of family when medically stable. CM available for any changes. DC Plan: Independent Date Signed: 05/04/2018 04:42 PM Electronically Signed By:Rachel Vang RN Case Management Discharge Plan Note Case Management Discharge Discharge Order Complete? Answers: Yes Patient to Obtain Answers: via Family Medications Transportation Arranged Answers: Family/Friends EMTALA Complete Answers: No Case Management Transport Answers: No Form Complete Faxed Final Orders Answers: No Agency/Facility Transfer Answers: No Report Printed & Faxed to Receiving Agency Family Notified Answers: Yes Discharge Comments Notes: CM met with pt and significant other. CM provided letter of hospitalization. No other CM needs identified. Family to transport. Date Signed: 05/07/2018 11:43 AM Electronically Signed By:RYAN Rodas Intervention Information
--- NOTE | 2018-05-07 15:58 | GDS ---
IN-HOSPITAL CONSULTANTS: Dr. Rory Butelr DISCHARGE DIAGNOSIS: 18 x 10 mm right renal pelvis calculus with secondary moderate right-sided hydr onephrosis. HISTORY OF PRESENT ILLNESS: The patient is a 37-year-old female who presented to the [facility] emergency room after developing right-sided flank pain. She was found to have a large ri ght renal stone at the renal pelvis causing right-sided hydronephrosis. She subsequently underwent s tent placement and the plan was for discharge home; however, she developed a rash on the right upper extremity, and was having significant pain control issues, so we opted to keep her in the hospital to address these two issues. The rash resolved with Benadryl with no recurrence, and then regarding he r pain, we adjusted her oral pain medication to oxycodone, which she has used previously with good re sults and has tolerated it okay. She states she does have itching typically with any narcotic medica tions, but has tolerated oxycodone reasonably well. Fortunately, we were able to manage her pain wit h oxycodone and stopped using IV pain medications and ultimately was felt stable for discharge home o n 05/07/2018, with the plan for short-term followup with Dr. Butler for definitive stone treatment of the right renal stone. HOSPITAL COURSE BY PROBLEM: 1. Right renal stone: The patient was found to have a large right renal stone at the right ureter a t the level of the renal pelvis causing moderate right-sided hydronephrosis. Patient has underwent s tent placement and will have short-term followup with Dr. Butler for definitive stone treatment. 2. Abdominal/pelvic pain: I reviewed her pain symptoms with Dr. Butler, and it was felt likely seco ndary to stent placement. At this time, she has recently obtained reasonable control with oxycodone as needed at 10 mg every 4 hours. 3. Rash: She had an urticarial like rash in her dorsal right wrist, which resolved with Benadryl. 4. DVT prophylaxis: Compression devices used. DISPOSITION: The patient appears stable for discharge home at this time. EXAM: VITAL SIGNS: Temperature 36.9, blood pressure 118/82, heart rate 67, respirations 16, saturat ing 94% on room air. GENERAL: Patient appears comfortable she is awake, alert, conversant, in no ac yemi distress. HEART: Regular. No murmurs. LUNGS: Normal respiratory effort. ABDOMEN: Nondisten ded. Normal bowel sounds. : No Diaz catheter in place. Right-sided discomfort with deep palpat ion. EXTREMITIES: No significant pitting edema. LABORATORY/IMAGING: Notable studies: CT scan abdomen, pelvis 05/04/2018, showed moderate right-side d nephrosis, secondary to an 18 x 10 mm calculus in the right renal pelvis, nonobstructing left nephr olithiasis. DISCHARGE MEDICATIONS: Citalopram 40 mg nightly, nortriptyline 10 mg nightly, Chantix 1 mg nightly, Imitrex 25 mg p.r.n., oxycodone IR 5 mg tablets 2 tablets every 4 hours as needed for pain, 30 tablet s, dispense today. DISCHARGE INSTRUCTIONS: I have recommended a followup visit with Dr. Butler later this week to discu ss treatment of her remaining stone in the right renal pelvis. 35 minutes of time dedicated to discharge efforts. /[id number]/MODL
== END 2018-05-07 12:17 | disposition home or self-care (01) ==
LOC: F1N 15:29
PROVIDERS: ADMIT Family Medicine; ATTEND Internal Medicine
DX: N20.0 Calculus of kidney (principal); M79.7 Fibromyalgia; K58.9 Irritable bowel syndrome, unspecified; E86.0 Dehydration
CPT/HCPCS: 52005; 74176; 76705; 96374; 96375; 96376; 99285; C1758; C1769; G0378; C2625; J1170; J1200; J1885; J1956; J2001; J2250; J2270; J2405; J2550; J2704; J3010; Q9967

== ENCOUNTER → 2018-05-10 | Outpatient (CLI) | payer OTHER | LOC: FIMAGING 07:51 | PROVIDERS: ATTEND Specialist | DX: N20.0 Calculus of kidney (principal) ==

== ENCOUNTER → 2018-05-29 | Outpatient (CLI) | payer OTHER, MEDICAID ==
[~2018-05-29] MED LIST: IOHEXOL 300 mgI/ML (OMNIPAQUE) 150 ML BTL IV ONE
== END ==
LOC: FIMAGING 14:43
PROVIDERS: ATTEND Specialist
DX: N13.2 Hydronephrosis with renal and ureteral calculous obstruction (principal); Z96.0 Presence of urogenital implants
CPT/HCPCS: Q9967

== ENCOUNTER 2018-05-30 06:56 | Observation (INO) | payer OTHER, MEDICAID ==
[2018-05-30] MEDS ORDERED: ALTEPLASE 2 MG VIAL IVP PRN (07:27)
[2018-05-30] MEDS ORDERED: MEPERIDINE 25 MG/ML SYR IVP PRN (07:27)
[2018-05-30] MEDS ORDERED: MIDAZOLAM 2 MG/2 ML VIAL IVP PRN (07:27)
[2018-05-30] MEDS ORDERED: FLUMAZENIL 0.5 MG/5 ML MDV IVP PRN (07:27)
[2018-05-30] MEDS ORDERED: fentaNYL 100 MCG/2 ML INJ IVP PRN (07:27)
[2018-05-30] MEDS ORDERED: NALOXONE HCL 0.4 MG/ML INJ IVP PRN (07:27)
[2018-05-30] MEDS ORDERED: IOPAMIDOL (ISOVUE-300) 100 ML BTL ONE (08:25)
[2018-05-30] MEDS ORDERED: LIDOCAINE 1% 300 MG/30 ML SDV ONE (08:25)
[2018-05-30] MEDS: NS 1,000 ML IV SCH ×2 (08:34→22:47)
[2018-05-30 08:50] LABS: INR 0.93 (0.83-1.16); PROTIME(PATIENT) 12.7 SEC (12.0-15.0)
--- NOTE | 2018-05-30 09:13 | PDRADPRE ---
Radiology History & Physical Indication for procedure: other (Nephrolithiasis- Plan for stone access nephrostomy tube right lower pole) Home medications: Beclomethasone Dipropionate [Qvar Redihaler] 1 puffs PO BID PRN 05/04/18 [Last Taken Unknown] Citalopram Hydrobromide [Citalopram HBr] 40 mg PO HS 05/04/18 [Last Taken ] Nortriptyline HCl 10 mg PO HS 05/04/18 [Last Taken 05/29/18] SUMAtriptan [Imitrex 25 MG (*)] 25 mg PO DAILY PRN 05/04/18 [Last Taken 05/29/18 ] Varenicline Tartrate [Chantix 1MG (*)] 1 mg PO HS 05/04/18 [Last Taken 05/29/18] Albuterol [Proventil Inhaler HFA (*)] 2 puffs IH Q6HRS PRN 05/23/18 [Last Taken Unknown] tiZANidine HCL [Zanaflex 2MG (*)] 2 mg PO Q6HRS PRN 05/23/18 [Last Taken ] Allergies/Adverse Reactions: linaclotide [From Linzess] Allergy (Intermediate, Verified 05/23/18 14:17) Hives Penicillins Allergy (Unknown, Verified 05/23/18 14:17) Mental status: A&Ox3 Heart exam: regular rate and rhythm Lungs exam: clear to auscultation Mallampati Score: Class 2
--- NOTE | 2018-05-30 09:13 | PDPROPOC ---
Sedation Plan of Care Sedation Plan of Care: vital signs stable, mental status noted, patient educated of risks, benefits, alternatives, patient can tolerate sedation ASA Classification: ASA 2 Planned drugs: midazolam Mallampati Score: Class 2 Mallampati Reference Image: Patient passed 3-3-2 rule?: Yes
[2018-05-30] MEDS ORDERED: fentaNYL 100 MCG/2 ML INJ ONE ×2 (09:55→11:06)
[2018-05-30] MEDS ORDERED: MIDAZOLAM 2 MG/2 ML VIAL ONE ×2 (09:55→11:06)
[2018-05-30] MEDS ORDERED: KETOROLAC 30 MG/1 ML SDV ONE ×2 (10:39→16:38)
[2018-05-30] MEDS ORDERED: OXYCODONE/APAP 5/325 TAB PO PRN (11:21)
[2018-05-30] MEDS ORDERED: ACETAMINOPHEN 325 MG TAB PO PRN (11:21)
--- NOTE | 2018-05-30 11:24 | PDRADPN ---
Radiology Procedure Note Date of Procedure: 05/30/18 Radiologist: Guerrero Hurst Anesthesia: IV Sedation Pre-op Diagnosis: Nephrolithiasis Post-op Diagnosis: Nephrolithiasis Indication: Nephrolithiasis Procedure: Right PCN tube for stone access Finding(s): Extremely difficult to maintain moderate sedation given high opiod tolerance. 8 Fr nephrostomyh tube placed without complication. Plan for extended observation in recovery and possible admission overnight for lithotripsy procedure tomorrow. Inf/Abcess present in the surg proc area at time of surgery?: No Drains: Nephrostomy
[2018-05-30] MEDS ORDERED: KETOROLAC 30 MG/1 ML SDV IVP ONE (13:15)
[2018-05-30] MEDS ORDERED: SUMAtriptan 25 MG TAB PO PRN (14:33)
[2018-05-30] MEDS ORDERED: BECLOMETHASONE QVAR 40 REDIHALER 120 INH/10.6 GM MDI IH PRN (14:33)
[2018-05-30] MEDS ORDERED: ALBUTEROL 60 PUFFS/8 GM MDI IH PRN (14:33)
[2018-05-30] MEDS ORDERED: tiZANidine HCL 2 MG TAB PO PRN (14:33)
--- NOTE | 2018-05-30 14:41 | HOSPPROG ---
Hospitalist Progress Note Assessment/Plan: patient seen/examined/discussed w MELISSA Zhou. s/p nephrostomy tube w plans for definitive stone management. d/w dr vital. agree w plan as outlined Objective: Vital Signs Temp Pulse Resp BP Pulse Ox 36.8 C 67 16 113/75 98 05/30/18 11:36 05/30/18 11:36 05/30/18 11:36 05/30/18 13:01 05/30/18 13:05 Laboratory Results 05/30/18 08:15 05/29/18 05/30/18 05/31/18 05:59 05:59 05:59 Intake Total 1050 Balance 1050 PT 12.7 SEC (12.0-15.0) 05/30/18 08:15 INR 0.93 (0.83-1.16) 05/30/18 08:15 ICD10 Worksheet Patient Problems: Problems Problem Status Onset Intractable pain Acute Renal calculus, right Acute
--- NOTE | 2018-05-30 14:51 | PDGENHP ---
History and Physical - Chief Complaint Nephrostomy tube placement/percutaneous nephrolithotomy - History of Present Illness HPI: 37 y/o female with history of kidney stones, fibromyalgia, and IBS presented to IR today for right-sided nephrostomy tube placement in preparation for percutaneous nephrolithotomy tomorrow with Dr. Butler. She was recently admitted mid-April with intense right-sided flank pain and hematuria. CT of abdomen revealed moderate hydronephrosis secondary to an 18 x 10 mm calculus in the right renal pelvis. A renal stent was placed and she was discharged. She is being admitted for today's procedure as well as tomorrow procedure. Past Medical History 1. Hx of kidney stones on 6 different occasions 2. Fibromyalgia 3. Irritable bowel syndrome 4. Migraines Past Surgical History 1. Partial hysterectomy 2. Ankle surgery 3. Two endometrial surgeries for endometriosis Social 1. She has been for 11 years to her Edward. 2. Denies tobacco or illicit drug use. Rarely drinks alcohol. 3. 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 [employer] History Information - Allergies/Home Medication List Allergies/Adverse Reactions: linaclotide [From Linzess] Allergy (Intermediate, Verified 05/23/18 14:17) Hives Penicillins Allergy (Unknown, Verified 05/23/18 14:17) Home Medications: Beclomethasone Dipropionate [Qvar Redihaler] 1 puffs PO BID PRN 05/04/18 [Last Taken Unknown] Citalopram Hydrobromide [Citalopram HBr] 40 mg PO HS 05/04/18 [Last Taken ] Nortriptyline HCl 10 mg PO HS 05/04/18 [Last Taken 05/29/18] SUMAtriptan [Imitrex 25 MG (*)] 25 mg PO DAILY PRN 05/04/18 [Last Taken 05/29/18 ] Varenicline Tartrate [Chantix 1MG (*)] 1 mg PO HS 05/04/18 [Last Taken 05/29/18] Albuterol [Proventil Inhaler HFA (*)] 2 puffs IH Q6HRS PRN 05/23/18 [Last Taken Unknown] tiZANidine HCL [Zanaflex 2MG (*)] 2 mg PO Q6HRS PRN 05/23/18 [Last Taken ] I have personally reviewed and updated: family history, medical history, social history, surgical history Past Medical History: See HPI list - Surgical History Additional surgical history: See HPI list - Family History Positive for: cancer, diabetes type II, stroke - Social History Smoking Status: Former smoker Alcohol Use: Rarely Drug Use: None Review of Systems Review of Systems: ROS: 10pt was reviewed & negative except for what was stated in HPI & below Constitutional: Reports: no symptoms EENMT: Reports: no symptoms Cardiac: Reports: no symptoms Respiratory: Reports: no symptoms Gastrointestinal: Reports: no symptoms Genitourinary: Reports: hematuria Muscolosketal: Reports: muscle pain (Origin of nephrostomy tube placement) Skin: Reports: no symptoms Neurological: Reports: no symptoms Hematologic/Lymphatic: Reports: no symptoms Immunologic/Allergy: Reports: other (See allergy list) Physical Exam Physical Exam: Lab data and imaging were reviewed. Case discussed with admitting physician, Dr. Ganesh Turner. Temp Pulse Resp BP Pulse Ox 36.8 C 67 16 113/75 98 05/30/18 11:36 05/30/18 11:36 05/30/18 11:36 05/30/18 13:01 05/30/18 13:05 O2 (L/minute) 2 Constitutional: no apparent distress, appears nourished, obese, uncomfortable Eyes: PERRL, anicteric sclera, EOMI Ears, Nose, Mouth, Throat: moist mucous membranes, hearing normal, ears appear normal, no oral mucosal ulcers Cardiovascular: regular rate and rhythym, no murmur, rub, or gallop, No edema Peripheral Pulses: 2+: dorsalis-pedis (R) (Radial 2+), dorsalis-pedis (L) ( Radial 2+) Respiratory: no respiratory distress, no rales or rhonchi, clear to auscultation Gastrointestinal: normoactive bowel sounds, soft, non-tender abdomen, no palpable masses Genitourinary: no bladder fullness, no bladder tenderness Skin: warm, normal color, no rashes or abrasions, no fluctuance, no induration, No mottled Musculoskeletal: pain with ROM Neurologic: AAOx3, sensation intact bilaterally, CN II-XII Intact Psychiatric: interacting appropriately, not anxious, not encephalopathic, thought process linear Lymph, Heme, Immunologic: no cervical LAD, no supraclavicular LAD Lab Data & Imaging Review 05/30/18 08:15 Hct 39.6 % (38.0-47.0) 05/30/18 08:15 Plt Count 381 10^3/uL (150-400) 05/30/18 08:15 PT 12.7 SEC (12.0-15.0) 05/30/18 08:15 INR 0.93 (0.83-1.16) 05/30/18 08:15 APTT 31.8 SEC (23.0-38.0) 05/30/18 08:15 Assessment & Plan Assessment: 37 y/o female with history of kidney stones received a right-sided nephrostomy tube in preparation for percutaneous nephrolithotomy and stent removal. I evaluated her s/p receiving renal tube - in no apparent distress, however uncomfortable with the pain which was described as persistent "corkscrew" sensation. She was able to eat a full lunch with no nausea or vomiting. #Pain management: PO/IVP PRN #CBC/CMP today and will recheck tomorrow #May continue home medications #NPO at midnight tonight Code: Full VTE ppx: Low risk, may ambulate in room ad robb Dispo: Admit to inpatient
[2018-05-30] MEDS: oxyCODONE IR 5 MG TAB PO PRN ×2 (15:14→20:08)
[2018-05-30] MEDS: KETOROLAC 30 MG/1 ML SDV IVP PRN ×2 (16:40→22:52)
[2018-05-30] MEDS: ACETAMINOPHEN 500 MG TAB PO SCH ×2 (18:10→22:34)
[2018-05-30] MEDS: VARENICLINE TARTRATE 1 MG TAB PO SCH (22:33)
[2018-05-30] MEDS: NORTRIPTYLINE HCL 10 MG CAP PO SCH (22:34)
[2018-05-30] MEDS: CITALOPRAM 20 MG TAB PO SCH (22:35)
[2018-05-31] MEDS: ACETAMINOPHEN 500 MG TAB PO SCH ×3 (06:09→22:44)
[2018-05-31] MEDS: oxyCODONE IR 5 MG TAB PO PRN (09:06)
--- NOTE | 2018-05-31 10:45 | PDMN ---
Medical Necessity Medical necessity: [facility] GRG urologic procedure Nephrolithotomy- [facility] inpt only sgy. pt also with neprostomy tube placement in advance of procedure- > 2 MN needed for sgy- further monitoring and tx
--- NOTE | 2018-05-31 11:04 | ASMTCMCOM ---
CM Note CM Note Notes: Patient admitted for scheduled R nephrostomy tube in preparation for percutaneous nephrolithotomy. She had a R renal stent placed a few weeks ago. 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 I do not anticipate any d/c needs; however, Case Management is available should any arise. Date Signed: 05/31/2018 11:03 AM Electronically Signed By:Soco Willis RN
[2018-05-31] MEDS ORDERED: fentaNYL 250 MCG/5 ML INJ ONE (11:36)
[2018-05-31] MEDS ORDERED: PROPOFOL/EMULSION 500 MG/50 ML BOTTLE IV ONE ×2 (11:38→13:34)
[2018-05-31] MEDS ORDERED: LR 1,000 ML IV ONE (11:39)
[2018-05-31] MEDS ORDERED: MIDAZOLAM 2 MG/2 ML VIAL IVP ONE (11:40)
--- NOTE | 2018-05-31 11:42 | PDANEPAE ---
ANE History of Present Illness 37 year old female for removal of stent and placement of nephrostomy. ANE Past Medical History - Cardiovascular History Hx Hypertension: No Hx Arrhythmias: No Hx Chest Pain: No Hx Coronary Artery / Peripheral Vascular Disease: No Hx CHF / Valvular Disease: No Hx Palpitations: No - Pulmonary History Hx COPD: No Hx Asthma/Reactive Airway Disease: No Hx Recent Upper Respiratory Infection: No Hx Oxygen in Use at Home: No Hx Sleep Apnea: Yes Sleep Apnea Screening Result - Last Documented: Positive Pulmonary History Comment: Infection induced asthma - Neurologic History Hx Cerebrovascular Accident: No Hx Seizures: No Hx Dementia: No - Endocrine History Hx Diabetes: No - Renal History Hx Renal Disorders: Yes Renal History Comment: Multiple kidney stones - Liver History Hx Hepatic Disorders: Yes - Neurological & Psychiatric Hx Hx Neurological and Psychiatric Disorders: Yes Neurological / Psychiatric History Comment: Migraines. Depression. Suicide attempts. Fibromyalgia - Cancer History Hx Cancer: No - Congenital Disorder History Hx Congenital Disorders: No - GI History Hx Gastrointestinal Disorders: Yes Gastrointestinal History Comment: IBS - Other Health History Other Health History: Missing teeth - Chronic Pain History Chronic Pain: Yes - Surgical History Prior Surgeries: Lithotripsy 2007. Partial hysterectomy 2012. R foot bone spur 2010. Laproscopic procedures for endometriosis; 2008 & 2010 ANE Review of Systems Review of systems is: negative Review of Systems: - Exercise capacity METS (RN): 4 METS ANE Patient History - Allergies Allergies/Adverse Reactions: linaclotide [From Linzess] Allergy (Intermediate, Verified 05/23/18 14:17) Hives Penicillins Allergy (Unknown, Verified 05/23/18 14:17) - Home Medications Home Medications: Beclomethasone Dipropionate [Qvar Redihaler] 1 puffs PO BID PRN 05/04/18 [Last Taken Unknown] Citalopram Hydrobromide [Citalopram HBr] 40 mg PO HS 05/04/18 [Last Taken ] Nortriptyline HCl 10 mg PO HS 05/04/18 [Last Taken 05/29/18] SUMAtriptan [Imitrex 25 MG (*)] 25 mg PO DAILY PRN 05/04/18 [Last Taken 05/29/18 ] Varenicline Tartrate [Chantix 1MG (*)] 1 mg PO HS 05/04/18 [Last Taken 05/29/18] Albuterol [Proventil Inhaler HFA (*)] 2 puffs IH Q6HRS PRN 05/23/18 [Last Taken Unknown] tiZANidine HCL [Zanaflex 2MG (*)] 2 mg PO Q6HRS PRN 05/23/18 [Last Taken ] - NPO status NPO Since - Liquids (Date): 05/30/18 NPO Since - Liquids (Time): 23:59 NPO Since - Solids (Date): 05/30/18 NPO Since - Solids (Time): 23:59 - Smoking Hx Smoking Status: Former smoker - Alcohol Use Alcohol Use: Rarely - Family Anes Hx Family Hx Anesthesia Complications: none ANE Labs/Vital Signs - Labs Result Diagrams: 05/31/18 04:23 05/31/18 04:23 - Vital Signs Blood Pressure: 138/86 Heart Rate: 75 Respiratory Rate: 16 O2 Sat (%): 94 Height: 157.48 cm Weight: 95.254 kg ANE Physical Exam - Airway Neck exam: FROM Mallampati Score: Class 2 Mouth exam: normal dental/mouth exam - Pulmonary Pulmonary: no respiratory distress - Cardiovascular Cardiovascular: regular rate and rhythym - ASA Status ASA Status: II ANE Anesthesia Plan Anesthesia Plan: general endotracheal anesthesia
[2018-05-31] MEDS ORDERED: MINERAL OIL 10 ML VIAL ONE (11:54)
[2018-05-31] MEDS ORDERED: DEXAMETHASONE 4 MG/ML VIAL IVP PRN (12:44)
[2018-05-31] MEDS ORDERED: NALOXONE HCL 0.4 MG/ML INJ IVP PRN ×2 (12:44→16:09)
--- NOTE | 2018-05-31 14:43 | POSTOPPROG ---
Post Op Note Date of Operation: 05/31/18 Surgeon: Rory Butler (# [id number]) Anesthesia: GET(General Endotracheal) Pre-op Diagnosis: ~ 2 cm right renal calculus, s/p ureteral stent placement Post-op Diagnosis: ~ 2 cm right renal calculus, s/p ureteral stent placement Procedure: Cysto w/ stent removal, right PCNL w/ fluoroscopic guidance, neph. tube Findings: See op note Inf/Abcess present in the surg proc area at time of surgery?: No EBL: 50-100 (50 cc) Complications: None Drains: Nephrostomy (14 German on right) Specimen(s): Right kidney stone fragments
[2018-05-31] MEDS ORDERED: fentaNYL 100 MCG/2 ML INJ ONE ×2 (14:47→15:00)
[2018-05-31] MEDS: fentaNYL 100 MCG/2 ML INJ IVP PRN ×4 (14:51→15:22)
--- NOTE | 2018-05-31 14:55 | POSTANESTH ---
Post Anesthetic Evaluation Cardiovascular Status: Normal, Stable Respiratory Status: Normal, Stable Level of Consciousness/Mental Status: Mildly Sleepy, Arousable Pain Control: Adequate, Prn Tx Ordered Nausea/Vomiting Control: Adequate, Prn Tx Ordered Complications Possibly Related to Anesthesia: None Noted
[2018-05-31] MEDS ORDERED: HYDROmorphONE/DILAUDID 1 MG/ML INJ IVP PRN (14:56)
[2018-05-31] MEDS ORDERED: HYDROmorphONE/DILAUDID 2 MG/ML INJ ONE (15:12)
[2018-05-31] MEDS: HYDROmorphONE/DILAUDID 2 MG/ML INJ IVP PRN ×5 (15:17→16:16)
--- NOTE | 2018-05-31 15:29 | GOP ---
[f rep st] OPERATIVE REPORT DATE OF OPERATION: 05/31/2018 SURGEON: Rory Butler MD ANESTHESIA: General endotracheal. PREOPERATIVE DIAGNOSIS: Approximately 2 cm right renal calculus, status post ureteral stent placement. POSTOPERATIVE DIAGNOSIS: Approximately 2 cm right renal calculus, status post ureteral stent placement. PROCEDURE PERFORMED: 1. Cystourethroscopy with right ureteral stent removal. 2. Right percutaneous nephrostolithotomy with ultrasonic and holmium laser lithotripsy. 3. Intermittent fluoroscopic guidance greater than 1 hour. 4. Right-sided nephrostomy tube placement. FINDINGS: Sizable (approximately 2 cm) right renal calculus. SPECIMENS: Right renal calculus fragments. ESTIMATED BLOOD LOSS: Approximately 50 cc. INDICATIONS: This woman was recently diagnosed with a large symptomatic right renal calculus. She was previously admitted for colic and required right ureteral stent placement. She now presents for definitive operative management of her large, approximately 2 cm, right renal stone. Nephrostomy tube was placed through Interventional Radiology yesterday in preparation for today's surgery. The indications for the procedures, as well as potential risks and complications were discussed with the patient preoperatively. She appeared to understand, her questions were answered, and she wished to proceed. Written informed surgical consent was thereafter obtained. DESCRIPTION OF PROCEDURE: The patient was brought to the operating room and administered general endotracheal anesthesia. She was temporarily kept on the transport gurney in order to perform flexible cystoscopy and stent removal. She was placed in a modified frogleg position. The genital area was sterilely prepped with Betadine paint. A flexible cystoscope was then inserted into the bladder. The ureteral stent was identified and removed with flexible grasping forceps, intact and without complication. A 16-Spanish Diaz catheter was then placed to bag drainage. The patient was then turned carefully into the prone position with all appropriate pressure points padded. Both of her arms were kept in a neutral position on arm boards. The right side of her back and the nephrostomy tube were sterilely prepped and draped in standard fashion. Dr. Motta from Interventional Radiology then proceeded to dilate the nephroscopic tract and place a working rigid nephroscopic sheath. Once this was complete, the rigid nephroscope was inserted, and the dominant calculus was seen. It was somewhat difficult to consistently visualize the calculus due to some disruption of the renal collecting system urothelium. I was able to utilize the ultrasonic Lithotripter through the rigid nephroscope to partially fragment the calculus. The dominant fragments remaining were removed with grasping forceps through the rigid nephroscope. These were ultimately sent to Pathology for chemical analysis. Intermittent spot fluoroscopic guidance with C-arm was used throughout the PCNL portion of the procedure. Once I was unable to visualize any other calculi through the rigid nephroscope, it was removed and flexible nephroscopy performed through the working nephroscopic sheath. There were a couple of small stone fragments in an upper pole calyx, for which I used a 365 micron holmium laser fiber to fragment these into minute pieces. Based upon both direction visualization through the scope and radiographically with spot fluoroscopic imaging, no subsequent remaining significant calculus fragments were appreciated. The instruments were removed. The previously placed balloon occlusion catheter was removed (placed by IR at time of sheath placement), as was the working nephroscopic sheath. I then advanced a 14-Spanish nephrostomy tube over one of the guidewires with the aid of fluoroscopic guidance and positioned it within the renal pelvis. The pigtail was then deployed after removal of the guidewire. Contrast was injected which confirmed placement of the nephrostomy tube within the renal pelvis. The nephrostomy tube was then secured to the skin with a 2-0 silk suture and dressed with a ski slope dressing , 4x4 guaze, followed by a large Tegaderm. The nephrostomy tube was connected to bag drainage. Diaz was kept to bag drainage. The patient was then turned back over into the supine position, followed by extubation and transfer to the recovery room. She tolerated the procedure well overall. DISPOSITION: She was transferred to the recovery room in stable condition, and will be transferred back to the floor for postoperative care thereafter. /[id number]/MODL MTDD
[2018-05-31] MEDS ORDERED: IOPAMIDOL (ISOVUE-300) 100 ML BTL ONE (15:59)
[2018-05-31] MEDS: HYDROmorphONE/DILAUDID 6 MG/30 ML PCA IV PRN ×2 (17:00→23:58)
[2018-05-31] MEDS: D5W 1/2 NS 1,000 ML IV SCH (17:24)
--- NOTE | 2018-05-31 17:36 | HOSPPROG ---
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 in pain Objective: Vital Signs Temp Pulse Resp BP Pulse Ox 36.6 C 101 H 19 137/85 H 91 L 05/31/18 16:45 05/31/18 16:45 05/31/18 16:45 05/31/18 16:45 05/31/18 16:45 Laboratory Results 05/31/18 04:23 05/31/18 04:23 05/30/18 05/31/18 06/01/18 05:59 05:59 05:59 Intake Total 2500 1850 Output Total 450 560 Balance 2050 1290 PT 12.7 SEC (12.0-15.0) 05/30/18 08:15 INR 0.93 (0.83-1.16) 05/30/18 08:15 - Physical Exam Constitutional: appears nourished, No no apparent distress Eyes: PERRL, anicteric sclera Ears, Nose, Mouth, Throat: moist mucous membranes, hearing normal Cardiovascular: regular rate and rhythym, no murmur, rub, or gallop Respiratory: no respiratory distress Gastrointestinal: normoactive bowel sounds, soft, non-tender abdomen Genitourinary: other (pink urine in nephrostomy bag), No rizvi in urethra Skin: warm Musculoskeletal: full muscle strength ICD10 Worksheet Patient Problems: Problems Problem Status Onset Intractable pain Acute Renal calculus, right Acute
[2018-05-31] MEDS: NORTRIPTYLINE HCL 10 MG CAP PO SCH (20:44)
[2018-05-31] MEDS: CITALOPRAM 20 MG TAB PO SCH (20:44)
[2018-05-31] MEDS: VARENICLINE TARTRATE 1 MG TAB PO SCH (20:44)
[2018-06-01] MEDS: KETOROLAC 30 MG/1 ML SDV IVP PRN (02:07)
[2018-06-01] MEDS: D5W 1/2 NS 1,000 ML IV SCH (02:07)
[2018-06-01 04:51] LABS: PLATELET COUNT 307 10^3/uL (150-400)
[2018-06-01] MEDS: ACETAMINOPHEN 500 MG TAB PO SCH (06:19)
[2018-06-01] MEDS: HYDROmorphONE/DILAUDID 6 MG/30 ML PCA IV PRN (08:15)
--- NOTE | 2018-06-01 09:25 | SOAPPROG ---
SOAP Progress Note Assessment/Plan: Assessment: POD 1 s/p right PCNL - stable, but is complaining of severe pain. I am concerned, based on her subjectively-described level of pain which is greatly out of the ordinary for this situation, that she either has a very low pain threshold, is drug-seeking, or both. Plan: 1. D/C IVF's, IV narcotics, begin ambulation, d/c Diaz. 2. Arrange for outpatient nephrostogram and nephrostomy tube removal through IR next Monday (I have placed order & requested case management assistance for this). 3. Other than pain control, no other impediment for home discharge from my standpoint. Subjective: Complains of severe pain ("8 out of 10") and excessive leakage around neph. tube site. Pt. sitting up in bed and scanning her phone when I walked in the room. Objective: Vital Signs Temp Pulse Resp BP Pulse Ox 36.9 C 88 14 123/68 H 95 06/01/18 07:22 06/01/18 07:22 06/01/18 07:22 06/01/18 07:22 06/01/18 07:22 Laboratory Results 06/01/18 04:25 06/01/18 04:25 05/31/18 06/01/18 06/02/18 05:59 05:59 05:59 Intake Total 2500 2600 Output Total 450 1750 Balance 2050 850 PT 12.7 SEC (12.0-15.0) 05/30/18 08:15 INR 0.93 (0.83-1.16) 05/30/18 08:15 Physical Exam - Physical Exam General Appearance: alert, mild distress, obese Abdomen: soft Back: Other (neph. tube drainage bloody without clots) Skin: warm/dry Extremities: non-tender, normal inspection Neuro/Psych: alert ICD10 Worksheet Patient Problems: Problems Problem Status Onset Intractable pain Acute Renal calculus, right Acute
[2018-06-01] MEDS: oxyCODONE IR 5 MG TAB PO PRN (10:31)
--- NOTE | 2018-06-01 10:32 | ASMTLACE ---
JIME Length of stay for Answers: 1 day current admission Acuity / Level of Answers: Yes Care: Did the patient have an inpatient admission? Comorbidities - select Answers: Opioid dependence all that apply / Chronic pain # of Emergency department Answers: 1-2 visits in the last 6 months Score: 9 Date Signed: 06/01/2018 10:31 AM Electronically Signed By:Tila Barber RN
--- NOTE | 2018-06-01 10:35 | ASMTDCNOTE ---
Case Management Discharge Discharge Order Complete? Answers: Yes Patient to Obtain Answers: via Family Medications Transportation Arranged Answers: Family/Friends Family Notified Answers: Yes Discharge Comments Notes: Medically cleared for discharge to home. Date Signed: 06/01/2018 10:35 AM Electronically Signed By:Tila Barber RN
[2018-06-01 11:35] VITALS: BP 155/83
--- NOTE | 2018-06-01 18:38 | GDS ---
[f rep st] DISCHARGE SUMMARY DISCHARGE DIAGNOSES: Nephrolithiasis, status post lithotripsy and nephrostomy tube placement. CONSULTANTS: 1. Dr. Guerrero Hurst, Interventional Radiology. 2. Dr. Rory Butler MD, Urology. PROCEDURES: 1. Cystourethroscopy with right ureteral stent removal. 2. Right percutaneous nephrostolithotomy with laser lithotripsy. 3. Right-sided nephrostomy tube placement performed by Rory Butler MD and Guerrero Hurst MD. on May 30, 2018. HISTORY: For details, please see the history and physical dated May 30, 2018. In brief, the rachael marquis is a 37-year-old female with a history of previous kidney stones and fibromyalgia, who presented to Interventional Radiology for a right-sided nephrostomy tube placement. She apparently had severe pain post procedure and was admitted to the hospital for further management. HOSPITAL COURSE: Patient admitted to the Med/Surg Urology Unit. She was followed by Dr. Rory díaz, urologist. I reviewed his operative note. He was able to break up her large 2 cm stone. This di d warrant placement of a percutaneous nephrostomy tube for stone access. She received 2 days of IV c eftriaxone, though there has been no evidence of infection or sepsis. Therefore, antibiotics were di scontinued at the time of discharge. 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 We discussed discontinuing this today and transitioning to oral pain me dicines, which have a longer duration of action. Overall, the patient feels much better and is ready to discharge home. DISPOSITION: Patient is discharged home in stable condition. FOLLOWUP: 1. Dr. Rory Butler, Urology, for followup on stone analysis and recurrent nephrolithiasis. 2. Interventional Radiology at [facility], June 05 at 2 p.m. for remova l of her right-sided nephrostomy tube. DISCHARGE MEDICATIONS: Please see [employer] complete medication list. NEW MEDICATIONS ON DISCHARGE: Include: 1. Tylenol 1000 mg p.o. q.8 hours until pain is resolved. 2. Oxycodone 5-10 mg p.o. q.6 hours p.r.n., #10, no refills. 3. She will continue all of her outpatient medications previously prescribed. /[id number]/MODL
== END 2018-06-01 12:49 | disposition home or self-care (01) ==
LOC: FIMAGING 06:56 → F3E 13:56 → INTOOBSV 13:56 → F1N 18:05
PROVIDERS: ADMIT Specialist; ATTEND Hospitalist
DX: N20.0 Calculus of kidney (principal); M79.7 Fibromyalgia; K58.9 Irritable bowel syndrome, unspecified; G43.909 Migraine, unspecified, not intractable, without status migrainosus; Z87.442 Personal history of urinary calculi; Z87.891 Personal history of nicotine dependence; Z80.3 Family history of malignant neoplasm of breast; Z88.0 Allergy status to penicillin; Z90.711 Acquired absence of uterus with remaining cervical stump
CPT/HCPCS: 50080; 50432; 50435; 52310; 74485; 99152; 99153; C1729; C1769; C1894; G0378; 82365-90; C1725; J0696; J1170; J1200; J1644; J1885; J2250; J2270; J2310; J2704; J3010; Q9967

== ENCOUNTER → 2018-06-05 | Day surgery (SDC) | payer OTHER, MEDICAID | END | disposition home or self-care (01) | LOC: FIMAGING 13:23 | PROVIDERS: ATTEND Specialist | PROC: 3E0K7KZ Introduction of Other Diagnostic Substance into Genitourinary Tract, Via Natural or Artificial Opening (ICD-10-PCS; principal; 2018-06-05) | DX: Z09 Encounter for follow-up examination after completed treatment for conditions other than malignant neoplasm (principal); Z87.442 Personal history of urinary calculi ==

== ENCOUNTER → 2018-07-01 | Outpatient (CLI) | payer OTHER, MEDICAID | LOC: FIMAGING 09:52 | PROVIDERS: ATTEND Specialist | DX: N20.0 Calculus of kidney (principal); Z98.890 Other specified postprocedural states ==

== ENCOUNTER → 2018-08-31 | Outpatient (CLI) | payer OTHER | LOC: FIMAGING 09:41 | PROVIDERS: ATTEND Family Medicine | DX: R10.9 Unspecified abdominal pain (principal); N20.0 Calculus of kidney ==

== ENCOUNTER → 2018-10-02 | Outpatient (CLI) | payer OTHER | LOC: FIMAGING 12:19 ==